=== PATIENT | male | born 1955 | race Caucasian/White ===

== ENCOUNTER 2016-12-03 07:11 | Day surgery (SDC) | payer BC, OTHER ==
[2016-12-03 07:55] VITALS: BMI 36.9
[2016-12-03] MEDS ORDERED: PROPOFOL 20 ML ONE ×3 (08:01)
[2016-12-03] MEDS ORDERED: LIDOCAINE HCL/PF 2% SDV 5ML VIAL ONE (08:01)
[2016-12-03 08:50] VITALS: PULSE 52
[2016-12-03 09:04] VITALS: TEMP 98.1
[2016-12-03 12:14] VITALS: BP 125/86
--- NOTE | 2016-12-04 12:27 | PATH ---
Surgical Pathology Report Patient Name: RADHA WINN [facility]. Rec. #: [id number] /Age/Gender: 1955 (Age: 61) / M Account: [id number] Location: U-ENDOSCOPY Taken: 12/03/2016 Received: 12/03/2016 Reported: 12/04/2016 Physicians: Jackie Robbins M.D. Specimen(s) Received A: POLYP RECTUM B: POLYPS DESCENDING C: POLYPS RIGHT COLON Clinical History History of polyps Colon polyps Final Diagnosis A. RECTUM, POLYP, POLYPECTOMY: FRAGMENTS OF HYPERPLASTIC POLYP. B. COLON, DESCENDING, POLYPS, POLYPECTOMY: HYPERPLASTIC POLYPS. C. COLON, RIGHT, POLYPS, POLYPECTOMY: POLYPOID FRAGMENTS OF COLON MUCOSA WITH REACTIVE LYMPHOID AGGREGATES AND SURFACE HYPERPLASTIC CHANGE. Electronically Signed Jovany Mercedes M.D. Gross Description A. Received in formalin, labeled "polyp rectum" are 4 chang, irregular portions of soft tissue ranging from 0.2-0.4 cm in greatest dimension. The specimens are submitted in toto in one cassette. B. Received in formalin, labeled "polyps descending colon" are 5 chang, irregular portions of soft tissue ranging from 0.2-0.5 cm in greatest dimension. The specimens are submitted in toto in one cassette. C. Received in formalin, labeled "polyps right colon" are 3 chang, irregular portions of soft tissue averaging 0.3 cm in greatest dimension. The specimens are submitted in toto in one cassette. /12/03/201612/03/2016
== END 2016-12-03 09:25 | disposition home or self-care (01) ==
LOC: JASU-ENDO 07:11
PROVIDERS: ATTEND Internal Medicine Gastroenterology
PROC: 0DBP8ZX Excision of Rectum, Via Natural or Artificial Opening Endoscopic, Diagnostic (ICD-10-PCS; 2016-12-03)
PROC: 0DBM8ZX Excision of Descending Colon, Via Natural or Artificial Opening Endoscopic, Diagnostic (ICD-10-PCS; 2016-12-03)
PROC: 0DBK8ZX Excision of Ascending Colon, Via Natural or Artificial Opening Endoscopic, Diagnostic (ICD-10-PCS; principal; 2016-12-03 08:00)
DX: Z86.010 Personal history of colon polyps (principal); K62.1 Rectal polyp; D12.2 Benign neoplasm of ascending colon; D12.4 Benign neoplasm of descending colon; K57.30 Diverticulosis of large intestine without perforation or abscess without bleeding
CPT/HCPCS: 88305-TC